=== PATIENT | male | born 1945 | race Caucasian/White ===

== ENCOUNTER 2019-11-07 16:25 | Inpatient (IN) | payer MEDICARE, OTHER ==
[~2019-11-07] VITALS: Ht 180.3 cm; Wt 92.5 kg
[~2019-11-07 16:25] MED LIST: ALLO100T PO; ASCO250T5 PO; ASPI81TA39 PO; CLOP75TA3 PO; DOCU250C14 PO; FOLI1TAB61 PO; INSLAN SQ; INSNOV SQ; LACT10SO9 PO; LEVO200 PO; NITR1PAT64 PO; SERT50TA12 PO; ZOLP5 PO
[2019-11-07] MEDS ORDERED: CARV3 PO (18:54)
[2019-11-07] MEDS ORDERED: ISOS30TA6 PO (18:54)
[2019-11-07] MEDS ORDERED: CINA30 PO (18:54)
[2019-11-07] MEDS ORDERED: HYDR25TA84 PO (18:54)
[2019-11-07] MEDS ORDERED: PROM6.2521 PO (18:54)
[2019-11-07] MEDS ORDERED: INSNPH SQ (18:54)
[2019-11-07] MEDS ORDERED: ATOR40TA28 PO (18:54)
[2019-11-07 19:11] LABS: GLUCOSE,POINT OF CARE 141 MG/DL (70-110)
[2019-11-07 19:25] LABS: BASOPHILS % (AUTO) 1.4 % (0.0-2.0); EOSINOPHILS % (AUTO) 8.9 % (1.0-6.0); HEMATOCRIT 37.9 % (41-53); HEMOGLOBIN 12.6 g/dL (13.5-17.5); LYMPHOCYTES # (AUTO) 1.5 K/uL (1.0-4.8); LYMPHOCYTES % (AUTO) 20.4 % (22.0-44.0); MEAN CORPUSCULAR HEMOGLOBIN 30.3 pg (26.0-34.0); MEAN CORPUSCULAR HGB CONC 33.2 G/dL (31.0-37.0); MEAN CORPUSCULAR VOLUME 91 fL (80-100); MONOCYTES # (AUTO) 0.4 K/uL (0.1-1.0); MONOCYTES % (AUTO) 5.7 % (2.0-9.0); NEUTROPHILS # (AUTO) 4.7 K/uL (1.8-7.7); NEUTROPHILS % (AUTO) 63.6 % (40.0-70.0); PLATELET COUNT (AUTO) 142 K/uL (150-450); RED BLOOD CELL COUNT(AUTO) 4.14 MIL/uL (4.50-5.90); RED CELL DISTRIBUTION WIDTH 17.6 % (11.5-14.5)
[2019-11-07 19:47] LABS: CALCIUM, TOTAL 8.3 mg/dL (8.8-10.5); CREATININE 4.61 mg/dL (0.60-1.30); POTASSIUM 4.9 mmol/L (3.5-5.1)
[2019-11-07 19:51] LABS: ALBUMIN 3.8 g/dL (3.4-5.0); BILIRUBIN,TOTAL 0.5 mg/dL (0.1-1.0); TOTAL PROTEIN, SERUM 8.2 g/dL (6.4-8.2)
[2019-11-07 21:43] LABS: MAGNESIUM 2.3 mg/dL (1.80-2.40); THYROID STIMULATING HORMONE 166.54 uIU/mL (0.36-3.74)
[2019-11-07 22:37] LABS: FREE T4 (FREE THYROXINE) 0.32 ng/dL (0.76-1.46)
[2019-11-07] MEDS ORDERED: ONDANSETRON HCL 4 MG/2 ML VIAL IVP PRN (23:15)
[2019-11-07] MEDS ORDERED: ACETAMINOPHEN 325 MG TABLET PO PRN ×2 (23:15→23:30)
[2019-11-07] MEDS ORDERED: 0.9% SODIUM CHLORIDE 10 ML SYRINGE IVP PRN (23:15)
[2019-11-07] MEDS ORDERED: OxyCODONE HCL/ACETAMINOPHEN 5-325 MG TABLET PO PRN (23:30)
[2019-11-07] MEDS ORDERED: LEVOTHYROXINE SODIUM 125 MCG TABLET PO ONE (23:30)
[2019-11-07] MEDS ORDERED: BISACODYL 10 MG RECTAL RECTAL SUPPOSITORY PR PRN (23:30)
[2019-11-07] MEDS ORDERED: DEXTROSE 50%-WATER 25 GM/50 ML SYRINGE IVP PRN (23:30)
[2019-11-08 08:40] VITALS: BP 110/75
[2019-11-08] MEDS: DOCUSATE SODIUM 100 MG CAPSULE PO SCH ×2 (09:59→20:43)
[2019-11-08] MEDS: CLOPIDOGREL BISULFATE 75 MG TABLET PO SCH (09:59)
[2019-11-08] MEDS: ASPIRIN 81 MG CHEWABLE TABLET PO SCH (09:59)
[2019-11-08] MEDS: FAMOTIDINE 20 MG TABLET PO SCH (09:59)
[2019-11-08] MEDS: HEPARIN SODIUM,PORCINE 5,000 UNITS/ML VIAL SQ SCH ×2 (10:00→20:42)
[2019-11-08 11:54] VITALS: BP 100/61
[2019-11-08 13:29] LABS: GLUCOMETER DEV NAME(LOC) 5N.2; GLUCOSE,POINT OF CARE 114 MG/DL (70-110)
[2019-11-08 16:20] VITALS: BP 119/54
[2019-11-08] MEDS: INSULIN LISPRO 100 UNITS/ML SQ PRN ×2 (18:29→20:40)
[2019-11-08 20:48] VITALS: BP 116/46
[2019-11-08 21:01] LABS: GLUCOMETER DEV NAME(LOC) 5N.2; GLUCOSE,POINT OF CARE 193 MG/DL (70-110)
[2019-11-08 21:01] LABS: GLUCOMETER DEV NAME(LOC) 5S.1; GLUCOSE,POINT OF CARE 148 MG/DL (70-110)
[2019-11-09 00:10] VITALS: BP 136/44
[2019-11-09 04:51] VITALS: BP 133/58
[2019-11-09] MEDS ORDERED: LEVOTHYROXINE SODIUM 125 MCG TABLET PO SCH (06:30)
[2019-11-09 07:48] LABS: GLUCOMETER DEV NAME(LOC) 5N.2; GLUCOSE,POINT OF CARE 112 MG/DL (70-110)
[2019-11-09 08:09] LABS: GLUCOMETER DEV NAME(LOC) 5N.2; GLUCOSE,POINT OF CARE 117 MG/DL (70-110)
[2019-11-09] MEDS: CLOPIDOGREL BISULFATE 75 MG TABLET PO SCH (08:39)
[2019-11-09] MEDS: ASPIRIN 81 MG CHEWABLE TABLET PO SCH (08:39)
[2019-11-09] MEDS: HEPARIN SODIUM,PORCINE 5,000 UNITS/ML VIAL SQ SCH (08:40)
[2019-11-09] MEDS: FAMOTIDINE 20 MG TABLET PO SCH (08:40)
[2019-11-09] MEDS: DOCUSATE SODIUM 100 MG CAPSULE PO SCH (08:40)
[2019-11-09 08:41] VITALS: BP 122/49
[2019-11-09 12:03] VITALS: BP 119/49
[2019-11-09 17:24] LABS: GLUCOMETER DEV NAME(LOC) 5S.2A; GLUCOSE,POINT OF CARE 127 MG/DL (70-110)
[2019-11-09 18:22] VITALS: BP 133/55
== END 2019-11-09 18:30 | disposition home or self-care (01) | DRG 643 ==
LOC: EMS 16:33 → 5N 11-08 06:30
PROVIDERS: ADMIT Internal Medicine; ATTEND Internal Medicine
PROC: 5A1D70Z Performance of Urinary Filtration, Intermittent, Less than 6 Hours Per Day (ICD-10-PCS; principal; 2019-11-09)
DX: E03.9 Hypothyroidism, unspecified (principal); N18.6 End stage renal disease; E43 Unspecified severe protein-calorie malnutrition; I12.0 Hypertensive chronic kidney disease with stage 5 chronic kidney disease or end stage renal disease; E46 Unspecified protein-calorie malnutrition; I25.10 Atherosclerotic heart disease of native coronary artery without angina pectoris; E78.00 Pure hypercholesterolemia, unspecified; E11.22 Type 2 diabetes mellitus with diabetic chronic kidney disease; M10.9 Gout, unspecified; D63.1 Anemia in chronic kidney disease; E78.5 Hyperlipidemia, unspecified; Z98.890 Other specified postprocedural states; Z79.4 Long term (current) use of insulin; Z99.2 Dependence on renal dialysis; Z68.28 Body mass index [BMI] 28.0-28.9, adult; Z79.899 Other long term (current) drug therapy
CPT/HCPCS: 83735; 84436; 84439; 84443; 84481; 93005; 93306; J1644

== ENCOUNTER 2019-12-06 12:14 | Inpatient (IN) | payer MEDICARE, MEDICAID ==
[~2019-12-06] VITALS: Ht 172.7 cm; Wt 93.0 kg
[~2019-12-06 12:14] MED LIST changes: -ALLO100T PO; -ASCO250T5 PO; +ATOR40TA28 PO; +CINA30 PO; -INSLAN SQ; +ISOS30TA6 PO; -LACT10SO9 PO; -LEVO200 PO; -ZOLP5 PO
[2019-12-06 12:49] LABS: GLUCOSE,POINT OF CARE 124 MG/DL (70-110)
[2019-12-06] MEDS ORDERED: LEVO25TA9 PO (12:51)
[2019-12-06 14:15] LABS: BASOPHILS % (AUTO) 0.9 % (0.0-2.0); EOSINOPHILS % (AUTO) 0.8 % (1.0-6.0); HEMATOCRIT 27.2 % (41-53); HEMOGLOBIN 9.3 g/dL (13.5-17.5); LYMPHOCYTES # (AUTO) 1.1 K/uL (1.0-4.8); LYMPHOCYTES % (AUTO) 12.1 % (22.0-44.0); MEAN CORPUSCULAR HEMOGLOBIN 32.3 pg (26.0-34.0); MEAN CORPUSCULAR HGB CONC 34.2 G/dL (31.0-37.0); MEAN CORPUSCULAR VOLUME 95 fL (80-100); MONOCYTES # (AUTO) 0.8 K/uL (0.1-1.0); MONOCYTES % (AUTO) 9.5 % (2.0-9.0); NEUTROPHILS # (AUTO) 6.7 K/uL (1.8-7.7); NEUTROPHILS % (AUTO) 76.7 % (40.0-70.0); PLATELET COUNT (AUTO) 169 K/uL (150-450); RED BLOOD CELL COUNT(AUTO) 2.87 MIL/uL (4.50-5.90); RED CELL DISTRIBUTION WIDTH 19.5 % (11.5-14.5)
[2019-12-06 14:29] LABS: CALCIUM, TOTAL 8.5 mg/dL (8.8-10.5); CREATININE 5.54 mg/dL (0.60-1.30); POTASSIUM 4.5 mmol/L (3.5-5.1)
[2019-12-06 14:43] LABS: INR 1.1 (0.9-1.1); PROTHROMBIN TIME 10.9 SEC (9.4-11.6)
[2019-12-06 14:54] LABS: ALBUMIN 3.4 g/dL (3.4-5.0); BILIRUBIN,TOTAL 0.5 mg/dL (0.1-1.0); TOTAL PROTEIN, SERUM 7.9 g/dL (6.4-8.2)
[2019-12-06] MEDS ORDERED: METOPROLOL SUCCINATE 25 MG ER TABLET PO ONE (15:30)
[2019-12-06] MEDS ORDERED: NITROGLYCERIN 2% (1 GM=INCH) PACKET TP ONE (15:30)
[2019-12-06] MEDS ORDERED: PANTOPRAZOLE SODIUM 40 MG/VIAL IVP ONE (16:00)
[2019-12-06] MEDS ORDERED: ACETAMINOPHEN 325 MG TABLET PO PRN (16:15)
[2019-12-06] MEDS ORDERED: 0.9% SODIUM CHLORIDE 10 ML SYRINGE IVP PRN ×2 (16:15→21:30)
[2019-12-06] MEDS: PANTOPRAZOLE SODIUM 80 MG in SODIUM CHLORIDE 0.9% 100 ML IV SCH (16:23)
[2019-12-06] MEDS ORDERED: HEPARIN SODIUM 25000 UNITS/D5W 250 ML IV PRN (18:45)
[2019-12-06] MEDS: NITROGLYCERIN 2% (1 GM=INCH) PACKET TP SCH ×2 (19:04→23:20)
[2019-12-06 19:31] LABS: THYROID STIMULATING HORMONE 9.22 uIU/mL (0.36-3.74)
[2019-12-06] MEDS: METOPROLOL TARTRATE 25 MG TABLET PO SCH (20:40)
[2019-12-06] MEDS ORDERED: ATORVASTATIN CALCIUM 40 MG TABLET PO SCH (21:00)
[2019-12-06] MEDS ORDERED: ONDANSETRON HCL 4 MG/2 ML VIAL IVP PRN (21:30)
[2019-12-06] MEDS ORDERED: DEXTROSE 50%-WATER 25 GM/50 ML SYRINGE IVP PRN (21:30)
[2019-12-06] MEDS ORDERED: IPRATROPIUM BROMIDE 0.5 MG/2.5 ML NEB SOLUTION NEB PRN (21:30)
[2019-12-06] MEDS ORDERED: ALBUTEROL SULFATE 2.5 MG/0.5 ML NEB SOLUTION NEB PRN (21:30)
[2019-12-07] MEDS: PANTOPRAZOLE SODIUM 80 MG in SODIUM CHLORIDE 0.9% 100 ML IV SCH (01:10)
[2019-12-07] MEDS: ALBUTEROL SULFATE 2.5 MG/0.5 ML NEB SOLUTION NEB SCH ×4 (01:41→20:01)
[2019-12-07] MEDS: IPRATROPIUM BROMIDE 0.5 MG/2.5 ML NEB SOLUTION NEB SCH ×4 (01:41→20:01)
[2019-12-07 01:54] LABS: GLUCOSE,POINT OF CARE 150 MG/DL (70-110)
[2019-12-07] MEDS ORDERED: PHENYLEPHRINE 200 MG/D5%-WATER 250 ML IV PRN ×2 (03:15→03:29)
[2019-12-07] MEDS: LEVOTHYROXINE SODIUM 25 MCG TABLET PO SCH (06:26)
[2019-12-07] MEDS ORDERED: LEVOTHYROXINE SODIUM 50 MCG TABLET PO SCH (06:30)
[2019-12-07 07:47] LABS: EOSINOPHILS % (AUTO) 2.4 % (1.0-6.0); HEMATOCRIT 26.3 % (41-53); LYMPHOCYTES # (AUTO) 1.4 K/uL (1.0-4.8); LYMPHOCYTES % (AUTO) 16.5 % (22.0-44.0); MEAN CORPUSCULAR HEMOGLOBIN 32.2 pg (26.0-34.0); MEAN CORPUSCULAR HGB CONC 34.2 G/dL (31.0-37.0); MEAN CORPUSCULAR VOLUME 94 fL (80-100); MONOCYTES # (AUTO) 0.9 K/uL (0.1-1.0); NEUTROPHILS % (AUTO) 70.1 % (40.0-70.0); PLATELET COUNT (AUTO) 187 K/uL (150-450); RED BLOOD CELL COUNT(AUTO) 2.79 MIL/uL (4.50-5.90); RED CELL DISTRIBUTION WIDTH 18.8 % (11.5-14.5)
[2019-12-07 08:19] LABS: ALBUMIN 3.2 g/dL (3.4-5.0); BILIRUBIN,TOTAL 0.6 mg/dL (0.1-1.0); CREATININE 6.9 mg/dL (0.60-1.30); MAGNESIUM 2.1 mg/dL (1.80-2.40); POTASSIUM 4.7 mmol/L (3.5-5.1); TOTAL PROTEIN, SERUM 7.6 g/dL (6.4-8.2)
[2019-12-07 08:23] LABS: CALCIUM, TOTAL 8.1 mg/dL (8.8-10.5)
[2019-12-07] MEDS ORDERED: ASPIRIN 81 MG EC TABLET PO SCH (09:00)
[2019-12-07] MEDS ORDERED: CLOPIDOGREL BISULFATE 75 MG TABLET PO SCH (09:00)
[2019-12-07] MEDS ORDERED: ATORVASTATIN CALCIUM 40 MG TABLET PO SCH (09:00)
[2019-12-07] MEDS: CINACALCET HCL 30 MG TABLET PO SCH (09:13)
[2019-12-07] MEDS: ISOSORBIDE MONONITRATE 30 MG ER TABLET PO SCH (09:13)
[2019-12-07] MEDS: NITROGLYCERIN 2% (1 GM=INCH) PACKET TP SCH ×3 (09:13→23:25)
[2019-12-07] MEDS: DOCUSATE SODIUM 250 MG CAPSULE PO SCH ×2 (09:13→21:03)
[2019-12-07] MEDS: ASPIRIN 81 MG CHEWABLE TABLET PO SCH (09:13)
[2019-12-07] MEDS: VITAMIN B COMP/VIT C/FOLIC ACID CAPSULE PO SCH (09:14)
[2019-12-07] MEDS: SERTRALINE HCL 50 MG TABLET PO SCH (09:14)
[2019-12-07] MEDS: METOPROLOL TARTRATE 25 MG TABLET PO SCH ×2 (09:14→19:40)
[2019-12-07 09:30] VITALS: BP 147/62
[2019-12-07] MEDS: PANTOPRAZOLE SODIUM 40 MG/VIAL IVP SCH (10:09)
[2019-12-07 12:00] VITALS: BP 99/41
[2019-12-07] MEDS ORDERED: MANNITOL 25%-12.5 GM/50 ML VIAL IVP ONE (12:00)
[2019-12-07] MEDS ORDERED: NITROGLYCERIN 2% (1 GM=INCH) PACKET TP SCH (12:00)
[2019-12-07 12:20] LABS: GLUCOSE,POINT OF CARE 103 MG/DL (70-110)
[2019-12-07] MEDS ORDERED: HEPARIN SODIUM 25000 UNITS/D5W 250 ML IV SCH (14:00)
[2019-12-07] MEDS ORDERED: FOLI1TAB61 PO (14:12)
[2019-12-07] MEDS ORDERED: NITR0.4T52 SL (14:12)
[2019-12-07] MEDS ORDERED: HEPARIN SODIUM 25000 UNITS/D5W 250 ML IV PRN (14:15)
[2019-12-07] MEDS ORDERED: HEPARIN SODIUM,PORCINE 5,000 UNITS/ML VIAL IVP PRN ×2 (14:15)
[2019-12-07 16:00] VITALS: BP 102/47
[2019-12-07 17:50] LABS: GLUCOSE,POINT OF CARE 125 MG/DL (70-110)
[2019-12-07 20:00] VITALS: BP 108/41
[2019-12-07] MEDS: INSULIN LISPRO 100 UNITS/ML SQ PRN (21:04)
[2019-12-08] VITALS: BP 160/80
[2019-12-08] MEDS: IPRATROPIUM BROMIDE 0.5 MG/2.5 ML NEB SOLUTION NEB SCH ×4 (02:37→22:26)
[2019-12-08] MEDS: ALBUTEROL SULFATE 2.5 MG/0.5 ML NEB SOLUTION NEB SCH ×4 (02:37→22:27)
[2019-12-08 04:00] VITALS: BP 97/54
[2019-12-08] MEDS: INSULIN LISPRO 100 UNITS/ML SQ PRN ×3 (05:11→22:09)
[2019-12-08 05:28] LABS: BASOPHILS % (AUTO) 0.9 % (0.0-2.0); HEMATOCRIT 23.7 % (41-53); HEMOGLOBIN 8.1 g/dL (13.5-17.5); LYMPHOCYTES # (AUTO) 0.9 K/uL (1.0-4.8); LYMPHOCYTES % (AUTO) 14.7 % (22.0-44.0); MEAN CORPUSCULAR HEMOGLOBIN 31.9 pg (26.0-34.0); MEAN CORPUSCULAR HGB CONC 34.3 G/dL (31.0-37.0); MEAN CORPUSCULAR VOLUME 93 fL (80-100); MONOCYTES # (AUTO) 0.7 K/uL (0.1-1.0); MONOCYTES % (AUTO) 11.2 % (2.0-9.0); NEUTROPHILS # (AUTO) 4.1 K/uL (1.8-7.7); NEUTROPHILS % (AUTO) 69.2 % (40.0-70.0); PLATELET COUNT (AUTO) 153 K/uL (150-450); RED BLOOD CELL COUNT(AUTO) 2.55 MIL/uL (4.50-5.90); RED CELL DISTRIBUTION WIDTH 18.5 % (11.5-14.5)
[2019-12-08 05:31] LABS: GLUCOSE,POINT OF CARE 129 MG/DL (70-110)
[2019-12-08 05:49] LABS: ALBUMIN 2.9 g/dL (3.4-5.0); BILIRUBIN,TOTAL 0.5 mg/dL (0.1-1.0); CALCIUM, TOTAL 7.8 mg/dL (8.8-10.5); CREATININE 4.2 mg/dL (0.60-1.30); MAGNESIUM 1.8 mg/dL (1.80-2.40); POTASSIUM 3.9 mmol/L (3.5-5.1); TOTAL PROTEIN, SERUM 7.2 g/dL (6.4-8.2)
[2019-12-08] MEDS: LEVOTHYROXINE SODIUM 25 MCG TABLET PO SCH (06:15)
[2019-12-08 07:40] LABS: GLUCOSE,POINT OF CARE 159 MG/DL (70-110)
[2019-12-08] MEDS: VITAMIN B COMP/VIT C/FOLIC ACID CAPSULE PO SCH (08:47)
[2019-12-08] MEDS: NITROGLYCERIN 2% (1 GM=INCH) PACKET TP SCH ×3 (08:47→23:35)
[2019-12-08] MEDS: DOCUSATE SODIUM 250 MG CAPSULE PO SCH ×2 (08:47→21:28)
[2019-12-08] MEDS: CINACALCET HCL 30 MG TABLET PO SCH (08:47)
[2019-12-08] MEDS: ISOSORBIDE MONONITRATE 30 MG ER TABLET PO SCH (08:48)
[2019-12-08] MEDS: PANTOPRAZOLE SODIUM 40 MG/VIAL IVP SCH (08:48)
[2019-12-08] MEDS: METOPROLOL TARTRATE 25 MG TABLET PO SCH ×2 (08:48→21:27)
[2019-12-08] MEDS: ASPIRIN 81 MG CHEWABLE TABLET PO SCH (08:48)
[2019-12-08] MEDS: SERTRALINE HCL 50 MG TABLET PO SCH (08:48)
[2019-12-08 12:00] VITALS: BP 97/43
[2019-12-08 16:00] VITALS: BP 119/56
[2019-12-08 19:20] VITALS: BP 139/61
[2019-12-08] MEDS: ATORVASTATIN CALCIUM 40 MG TABLET PO SCH (21:27)
[2019-12-08 23:33] VITALS: BP 126/64
[2019-12-09] MEDS: IPRATROPIUM BROMIDE 0.5 MG/2.5 ML NEB SOLUTION NEB SCH ×4 (03:39→20:33)
[2019-12-09] MEDS: ALBUTEROL SULFATE 2.5 MG/0.5 ML NEB SOLUTION NEB SCH ×4 (03:40→20:33)
[2019-12-09 04:01] VITALS: BP 101/51
[2019-12-09 05:25] LABS: GLUCOMETER DEV NAME(LOC) 5N.1; GLUCOSE,POINT OF CARE 159 MG/DL (70-110)
[2019-12-09] MEDS: LEVOTHYROXINE SODIUM 25 MCG TABLET PO SCH (06:30)
[2019-12-09] MEDS: INSULIN LISPRO 100 UNITS/ML SQ PRN ×3 (06:55→21:52)
[2019-12-09] MEDS: NITROGLYCERIN 2% (1 GM=INCH) PACKET TP SCH ×3 (08:00→23:33)
[2019-12-09 09:00] VITALS: BP 110/50
[2019-12-09 09:21] LABS: EOSINOPHILS % (AUTO) 3.2 % (1.0-6.0); HEMATOCRIT 23.8 % (41-53); HEMOGLOBIN 8.1 g/dL (13.5-17.5); LYMPHOCYTES # (AUTO) 1.2 K/uL (1.0-4.8); LYMPHOCYTES % (AUTO) 20.6 % (22.0-44.0); MEAN CORPUSCULAR HEMOGLOBIN 31.8 pg (26.0-34.0); MEAN CORPUSCULAR HGB CONC 34.1 G/dL (31.0-37.0); MEAN CORPUSCULAR VOLUME 93 fL (80-100); MONOCYTES # (AUTO) 0.7 K/uL (0.1-1.0); NEUTROPHILS # (AUTO) 3.6 K/uL (1.8-7.7); NEUTROPHILS % (AUTO) 63.2 % (40.0-70.0); PLATELET COUNT (AUTO) 158 K/uL (150-450); RED BLOOD CELL COUNT(AUTO) 2.55 MIL/uL (4.50-5.90); RED CELL DISTRIBUTION WIDTH 18.8 % (11.5-14.5)
[2019-12-09] MEDS: VITAMIN B COMP/VIT C/FOLIC ACID CAPSULE PO SCH (09:35)
[2019-12-09] MEDS: CINACALCET HCL 30 MG TABLET PO SCH (09:35)
[2019-12-09] MEDS: METOPROLOL TARTRATE 25 MG TABLET PO SCH ×2 (09:36→21:35)
[2019-12-09] MEDS: DOCUSATE SODIUM 250 MG CAPSULE PO SCH ×2 (09:36→21:00)
[2019-12-09] MEDS: ISOSORBIDE MONONITRATE 30 MG ER TABLET PO SCH (09:36)
[2019-12-09] MEDS: ASPIRIN 81 MG CHEWABLE TABLET PO SCH (09:36)
[2019-12-09 09:40] LABS: BILIRUBIN,TOTAL 0.6 mg/dL (0.1-1.0); CALCIUM, TOTAL 7.2 mg/dL (8.8-10.5); CREATININE 6.21 mg/dL (0.60-1.30); MAGNESIUM 1.8 mg/dL (1.80-2.40); POTASSIUM 4.1 mmol/L (3.5-5.1); TOTAL PROTEIN, SERUM 7.2 g/dL (6.4-8.2)
[2019-12-09] MEDS: SERTRALINE HCL 50 MG TABLET PO SCH (10:37)
[2019-12-09] MEDS: PANTOPRAZOLE SODIUM 40 MG/VIAL IVP SCH (10:37)
[2019-12-09 11:54] VITALS: BP 110/40
[2019-12-09 12:22] LABS: GLUCOMETER DEV NAME(LOC) 5S.1; GLUCOSE,POINT OF CARE 119 MG/DL (70-110)
[2019-12-09 13:39] LABS: GLUCOMETER DEV NAME(LOC) 5N.1; GLUCOSE,POINT OF CARE 176 MG/DL (70-110)
[2019-12-09 15:29] VITALS: BP 103/52
[2019-12-09 19:27] VITALS: BP 149/57
[2019-12-09] MEDS: ATORVASTATIN CALCIUM 40 MG TABLET PO SCH (21:36)
[2019-12-09 23:50] VITALS: BP 112/55
[2019-12-10] MEDS: IPRATROPIUM BROMIDE 0.5 MG/2.5 ML NEB SOLUTION NEB SCH ×4 (03:01→19:47)
[2019-12-10] MEDS: ALBUTEROL SULFATE 2.5 MG/0.5 ML NEB SOLUTION NEB SCH ×4 (03:01→19:47)
[2019-12-10 05:03] VITALS: BP 112/53
[2019-12-10] MEDS: LEVOTHYROXINE SODIUM 25 MCG TABLET PO SCH (06:30)
[2019-12-10] MEDS: INSULIN LISPRO 100 UNITS/ML SQ PRN (06:55)
[2019-12-10 07:04] LABS: BASOPHILS % (AUTO) 0.9 % (0.0-2.0); EOSINOPHILS % (AUTO) 5.4 % (1.0-6.0); HEMATOCRIT 22.1 % (41-53); HEMOGLOBIN 7.7 g/dL (13.5-17.5); LYMPHOCYTES # (AUTO) 1.3 K/uL (1.0-4.8); LYMPHOCYTES % (AUTO) 22.8 % (22.0-44.0); MEAN CORPUSCULAR HEMOGLOBIN 32.4 pg (26.0-34.0); MEAN CORPUSCULAR HGB CONC 35.1 G/dL (31.0-37.0); MEAN CORPUSCULAR VOLUME 93 fL (80-100); MONOCYTES # (AUTO) 0.7 K/uL (0.1-1.0); MONOCYTES % (AUTO) 11.2 % (2.0-9.0); NEUTROPHILS # (AUTO) 3.5 K/uL (1.8-7.7); NEUTROPHILS % (AUTO) 59.7 % (40.0-70.0); PLATELET COUNT (AUTO) 150 K/uL (150-450); RED BLOOD CELL COUNT(AUTO) 2.39 MIL/uL (4.50-5.90); RED CELL DISTRIBUTION WIDTH 18.9 % (11.5-14.5)
[2019-12-10 07:46] LABS: GLUCOMETER DEV NAME(LOC) 5S.1; GLUCOSE,POINT OF CARE 123 MG/DL (70-110)
[2019-12-10 07:46] LABS: GLUCOMETER DEV NAME(LOC) 5S.1; GLUCOSE,POINT OF CARE 128 MG/DL (70-110)
[2019-12-10 07:46] LABS: GLUCOMETER DEV NAME(LOC) 5S.1; GLUCOSE,POINT OF CARE 119 MG/DL (70-110)
[2019-12-10 07:52] LABS: ALBUMIN 2.9 g/dL (3.4-5.0); BILIRUBIN,TOTAL 0.6 mg/dL (0.1-1.0); CALCIUM, TOTAL 7.2 mg/dL (8.8-10.5); CREATININE 7.66 mg/dL (0.60-1.30); MAGNESIUM 1.9 mg/dL (1.80-2.40); POTASSIUM 4.6 mmol/L (3.5-5.1); TOTAL PROTEIN, SERUM 7.3 g/dL (6.4-8.2)
[2019-12-10] MEDS: CINACALCET HCL 30 MG TABLET PO SCH (08:00)
[2019-12-10 08:10] VITALS: BP 139/56
[2019-12-10] MEDS: ASPIRIN 81 MG CHEWABLE TABLET PO SCH (09:00)
[2019-12-10] MEDS: VITAMIN B COMP/VIT C/FOLIC ACID CAPSULE PO SCH (09:00)
[2019-12-10] MEDS: SERTRALINE HCL 50 MG TABLET PO SCH (09:00)
[2019-12-10] MEDS: METOPROLOL TARTRATE 25 MG TABLET PO SCH ×2 (09:00→20:45)
[2019-12-10] MEDS: ISOSORBIDE MONONITRATE 30 MG ER TABLET PO SCH (09:00)
[2019-12-10] MEDS: DOCUSATE SODIUM 250 MG CAPSULE PO SCH ×2 (09:00→20:45)
[2019-12-10] MEDS: NITROGLYCERIN 2% (1 GM=INCH) PACKET TP SCH ×3 (09:32→23:47)
[2019-12-10] MEDS: PANTOPRAZOLE SODIUM 40 MG/VIAL IVP SCH (09:48)
[2019-12-10 11:24] VITALS: BP 104/77
[2019-12-10 12:50] LABS: GLUCOMETER DEV NAME(LOC) 5N.1; GLUCOSE,POINT OF CARE 122 MG/DL (70-110)
[2019-12-10] MEDS: DOXYCYCLINE HYCLATE 100 MG CAPSULE PO SCH ×2 (14:30→20:45)
[2019-12-10] MEDS: CefTRIAXone 1 GM/DEXTROSE 50 ML IV SCH (16:00)
[2019-12-10 18:27] LABS: GLUCOMETER DEV NAME(LOC) 5N.1; GLUCOSE,POINT OF CARE 138 MG/DL (70-110)
[2019-12-10 20:19] VITALS: BP 119/46
[2019-12-10] MEDS: ATORVASTATIN CALCIUM 40 MG TABLET PO SCH (20:45)
[2019-12-10 23:48] VITALS: BP 130/47
[2019-12-11] VITALS (10 sets, daily range): BP systolic 107–160; BP diastolic 45–73
[2019-12-11] MEDS: IPRATROPIUM BROMIDE 0.5 MG/2.5 ML NEB SOLUTION NEB SCH ×4 (02:19→20:17)
[2019-12-11] MEDS: ALBUTEROL SULFATE 2.5 MG/0.5 ML NEB SOLUTION NEB SCH ×4 (02:19→20:17)
[2019-12-11] MEDS: LEVOTHYROXINE SODIUM 25 MCG TABLET PO SCH (06:30)
[2019-12-11 06:41] LABS: BASOPHILS % (AUTO) 0.7 % (0.0-2.0); EOSINOPHILS % (AUTO) 4.1 % (1.0-6.0); HEMATOCRIT 22.3 % (41-53); HEMOGLOBIN 7.9 g/dL (13.5-17.5); LYMPHOCYTES # (AUTO) 1.3 K/uL (1.0-4.8); LYMPHOCYTES % (AUTO) 19.4 % (22.0-44.0); MEAN CORPUSCULAR HEMOGLOBIN 32.8 pg (26.0-34.0); MEAN CORPUSCULAR HGB CONC 35.5 G/dL (31.0-37.0); MEAN CORPUSCULAR VOLUME 92 fL (80-100); MONOCYTES # (AUTO) 0.5 K/uL (0.1-1.0); MONOCYTES % (AUTO) 8.2 % (2.0-9.0); NEUTROPHILS # (AUTO) 4.4 K/uL (1.8-7.7); NEUTROPHILS % (AUTO) 67.6 % (40.0-70.0); PLATELET COUNT (AUTO) 164 K/uL (150-450); RED BLOOD CELL COUNT(AUTO) 2.42 MIL/uL (4.50-5.90); RED CELL DISTRIBUTION WIDTH 18.4 % (11.5-14.5)
[2019-12-11 07:14] LABS: ALBUMIN 2.9 g/dL (3.4-5.0); BILIRUBIN,TOTAL 0.6 mg/dL (0.1-1.0); CALCIUM, TOTAL 8.1 mg/dL (8.8-10.5); CREATININE 4.75 mg/dL (0.60-1.30); MAGNESIUM 1.7 mg/dL (1.80-2.40); POTASSIUM 3.7 mmol/L (3.5-5.1); TOTAL PROTEIN, SERUM 7.2 g/dL (6.4-8.2)
[2019-12-11] MEDS: NITROGLYCERIN 2% (1 GM=INCH) PACKET TP SCH (08:00)
[2019-12-11] MEDS: CINACALCET HCL 30 MG TABLET PO SCH (08:00)
[2019-12-11] MEDS ORDERED: SODIUM BICARBONATE 50 MEQ/50 ML VIAL ONE (08:17)
[2019-12-11] MEDS ORDERED: HEPARIN SODIUM 1000 UNITS/NS 1,000 ML ONE (08:17)
[2019-12-11] MEDS ORDERED: LIDOCAINE/PF 1% 30 ML VIAL ONE (08:17)
[2019-12-11] MEDS ORDERED: IOHEXOL 300 MG/ML 150 ML VIAL ONE (08:17)
[2019-12-11] MEDS ORDERED: IOHEXOL 300 MG/ML 100 ML VIAL ONE ×3 (08:30→09:51)
[2019-12-11 08:39] LABS: GLUCOMETER DEV NAME(LOC) 5N.1; GLUCOSE,POINT OF CARE 127 MG/DL (70-110)
[2019-12-11 08:39] LABS: GLUCOMETER DEV NAME(LOC) 5S.1; GLUCOSE,POINT OF CARE 155 MG/DL (70-110)
[2019-12-11] MEDS: PANTOPRAZOLE SODIUM 40 MG/VIAL IVP SCH (08:39)
[2019-12-11] MEDS: ASPIRIN 81 MG CHEWABLE TABLET PO SCH (08:43)
[2019-12-11] MEDS: ISOSORBIDE MONONITRATE 30 MG ER TABLET PO SCH (08:44)
[2019-12-11] MEDS: DOCUSATE SODIUM 250 MG CAPSULE PO SCH ×2 (08:44→21:22)
[2019-12-11] MEDS: DOXYCYCLINE HYCLATE 100 MG CAPSULE PO SCH ×2 (08:45→22:05)
[2019-12-11] MEDS: METOPROLOL TARTRATE 25 MG TABLET PO SCH (08:45)
[2019-12-11] MEDS: VITAMIN B COMP/VIT C/FOLIC ACID CAPSULE PO SCH (08:45)
[2019-12-11] MEDS: SERTRALINE HCL 50 MG TABLET PO SCH (08:46)
[2019-12-11] MEDS ORDERED: IOHEXOL 300 MG/ML 50 ML VIAL ONE ×2 (08:51→09:16)
[2019-12-11] MEDS: EPOETIN ALFA 10,000 UNITS/ML VIAL SQ SCH (09:00)
[2019-12-11] MEDS ORDERED: HEPARIN SODIUM,PORCINE 1,000 UNITS/ML 10 ML VIAL ONE (10:07)
[2019-12-11] MEDS ORDERED: VERAPAMIL HCL 2.5 MG/ML 2 ML VIAL ONE (10:07)
[2019-12-11] MEDS ORDERED: NITROGLYCERIN 50 MG/D5% WATER 0 ML ONE (10:07)
[2019-12-11] MEDS ORDERED: CLOPIDOGREL BISULFATE 300 MG TABLET ONE (10:17)
[2019-12-11] MEDS ORDERED: ASPIRIN 325 MG TABLET ONE (10:25)
[2019-12-11] MEDS ORDERED: HEPARIN SODIUM 1000 UNITS/NS 500 ML ONE (10:25)
[2019-12-11] MEDS ORDERED: PHENYLEPHRINE 200 MG/D5%-WATER 250 ML IV PRN (10:38)
[2019-12-11] MEDS ORDERED: SODIUM CHLORIDE 0.9% 500 ML IV ONE (12:04)
[2019-12-11] MEDS ORDERED: HEPARIN SODIUM 2,000 UNITS in HEPARIN SODIUM 1000 UNITS/NS 1,000 ML IARTER ONE (12:04)
[2019-12-11] MEDS ORDERED: IOHEXOL 300 MG/ML 100 ML VIAL IARTER ONE ×2 (12:15)
[2019-12-11] MEDS ORDERED: HEPARIN SODIUM,PORCINE 5,000 UNITS/ML VIAL IVP ONE ×2 (12:15)
[2019-12-11] MEDS ORDERED: LIDOCAINE 1% 30 ML/SOD BICARB 8.4% 4 ML SQ ONE (12:15)
[2019-12-11] MEDS ORDERED: IOHEXOL 300 MG/ML 150 ML VIAL IARTER ONE (12:15)
[2019-12-11] MEDS ORDERED: CLOPIDOGREL BISULFATE 300 MG TABLET PO ONE (12:15)
[2019-12-11] MEDS ORDERED: ASPIRIN 325 MG TABLET PO ONE (12:15)
[2019-12-11] MEDS ORDERED: IOHEXOL 300 MG/ML 50 ML VIAL IARTER ONE ×2 (12:15)
[2019-12-11 13:20] LABS: INR 1.1 (0.9-1.1); PROTHROMBIN TIME 11.3 SEC (9.4-11.6)
[2019-12-11] MEDS: CefTRIAXone 1 GM/DEXTROSE 50 ML IV SCH (16:00)
[2019-12-11] MEDS ORDERED: SODIUM CHLORIDE 0.9% 2,000 ML ONE (16:52)
[2019-12-11] MEDS: ATORVASTATIN CALCIUM 40 MG TABLET PO SCH (21:22)
[2019-12-12] VITALS (8 sets, daily range): BP systolic 112–153; BP diastolic 46–75
[2019-12-12] MEDS: ALBUTEROL SULFATE 2.5 MG/0.5 ML NEB SOLUTION NEB SCH ×4 (01:50→20:03)
[2019-12-12] MEDS: IPRATROPIUM BROMIDE 0.5 MG/2.5 ML NEB SOLUTION NEB SCH ×4 (01:50→20:03)
[2019-12-12 05:19] LABS: BASOPHILS % (AUTO) 0.9 % (0.0-2.0); EOSINOPHILS % (AUTO) 4.5 % (1.0-6.0); HEMATOCRIT 22.5 % (41-53); HEMOGLOBIN 7.9 g/dL (13.5-17.5); LYMPHOCYTES % (AUTO) 16.5 % (22.0-44.0); MEAN CORPUSCULAR HEMOGLOBIN 32.6 pg (26.0-34.0); MEAN CORPUSCULAR HGB CONC 35.1 G/dL (31.0-37.0); MEAN CORPUSCULAR VOLUME 93 fL (80-100); MONOCYTES # (AUTO) 0.6 K/uL (0.1-1.0); MONOCYTES % (AUTO) 9.7 % (2.0-9.0); NEUTROPHILS % (AUTO) 68.4 % (40.0-70.0); PLATELET COUNT (AUTO) 183 K/uL (150-450); RED BLOOD CELL COUNT(AUTO) 2.43 MIL/uL (4.50-5.90); RED CELL DISTRIBUTION WIDTH 18.7 % (11.5-14.5)
[2019-12-12 05:36] LABS: CALCIUM, TOTAL 8.6 mg/dL (8.8-10.5); CREATININE 3.55 mg/dL (0.60-1.30); POTASSIUM 4.1 mmol/L (3.5-5.1)
[2019-12-12 05:50] LABS: GLUCOSE,POINT OF CARE 102 MG/DL (70-110)
[2019-12-12] MEDS: LEVOTHYROXINE SODIUM 25 MCG TABLET PO SCH (05:57)
[2019-12-12 06:11] LABS: GLUCOSE,POINT OF CARE 132 MG/DL (70-110)
[2019-12-12 06:15] LABS: GLUCOSE,POINT OF CARE 227 MG/DL (70-110)
[2019-12-12 06:16] LABS: GLUCOSE,POINT OF CARE 134 MG/DL (70-110)
[2019-12-12] MEDS ORDERED: ASPIRIN 81 MG CHEWABLE TABLET PO SCH (09:00)
[2019-12-12] MEDS: DOXYCYCLINE HYCLATE 100 MG CAPSULE PO SCH ×2 (09:18→21:36)
[2019-12-12] MEDS: SERTRALINE HCL 50 MG TABLET PO SCH (09:19)
[2019-12-12] MEDS: VITAMIN B COMP/VIT C/FOLIC ACID CAPSULE PO SCH (09:19)
[2019-12-12] MEDS: CINACALCET HCL 30 MG TABLET PO SCH (09:19)
[2019-12-12] MEDS: CLOPIDOGREL BISULFATE 75 MG TABLET PO SCH (09:19)
[2019-12-12] MEDS: DOCUSATE SODIUM 250 MG CAPSULE PO SCH ×2 (09:19→21:35)
[2019-12-12] MEDS: PANTOPRAZOLE SODIUM 40 MG/VIAL IVP SCH (09:20)
[2019-12-12] MEDS: ASPIRIN 81 MG CHEWABLE TABLET PO SCH (09:22)
[2019-12-12] MEDS: INSULIN LISPRO 100 UNITS/ML SQ PRN ×3 (11:39→21:39)
[2019-12-12] MEDS: CefTRIAXone 1 GM/DEXTROSE 50 ML IV SCH (16:20)
[2019-12-12] MEDS: ATORVASTATIN CALCIUM 40 MG TABLET PO SCH (21:35)
[2019-12-13 00:49] LABS: GLUCOSE,POINT OF CARE 180 MG/DL (70-110)
[2019-12-13 00:51] LABS: GLUCOSE,POINT OF CARE 192 MG/DL (70-110)
[2019-12-13] MEDS: IPRATROPIUM BROMIDE 0.5 MG/2.5 ML NEB SOLUTION NEB SCH ×2 (02:33→20:00)
[2019-12-13] MEDS: ALBUTEROL SULFATE 2.5 MG/0.5 ML NEB SOLUTION NEB SCH ×2 (02:33→20:00)
[2019-12-13 03:30] VITALS: BP 143/72
[2019-12-13] MEDS: LEVOTHYROXINE SODIUM 25 MCG TABLET PO SCH (05:55)
[2019-12-13 06:22] LABS: GLUCOMETER DEV NAME(LOC) 5N.2; GLUCOSE,POINT OF CARE 135 MG/DL (70-110)
[2019-12-13 06:22] LABS: GLUCOMETER DEV NAME(LOC) 5S.2A; GLUCOSE,POINT OF CARE 144 MG/DL (70-110)
[2019-12-13 06:57] LABS: EOSINOPHILS % (AUTO) 6.8 % (1.0-6.0); HEMATOCRIT 21.1 % (41-53); HEMOGLOBIN 7.3 g/dL (13.5-17.5); LYMPHOCYTES % (AUTO) 16.3 % (22.0-44.0); MEAN CORPUSCULAR HEMOGLOBIN 32.1 pg (26.0-34.0); MEAN CORPUSCULAR HGB CONC 34.4 G/dL (31.0-37.0); MEAN CORPUSCULAR VOLUME 93 fL (80-100); MONOCYTES # (AUTO) 0.6 K/uL (0.1-1.0); MONOCYTES % (AUTO) 9.5 % (2.0-9.0); NEUTROPHILS # (AUTO) 3.9 K/uL (1.8-7.7); NEUTROPHILS % (AUTO) 66.4 % (40.0-70.0); PLATELET COUNT (AUTO) 209 K/uL (150-450); RED BLOOD CELL COUNT(AUTO) 2.26 MIL/uL (4.50-5.90); RED CELL DISTRIBUTION WIDTH 18.8 % (11.5-14.5)
[2019-12-13 07:07] VITALS: BP 146/65
[2019-12-13 07:20] LABS: ALBUMIN 2.9 g/dL (3.4-5.0); BILIRUBIN,TOTAL 0.5 mg/dL (0.1-1.0); CALCIUM, TOTAL 8.3 mg/dL (8.8-10.5); CREATININE 5.36 mg/dL (0.60-1.30); MAGNESIUM 1.7 mg/dL (1.80-2.40); POTASSIUM 4.8 mmol/L (3.5-5.1); TOTAL PROTEIN, SERUM 7.3 g/dL (6.4-8.2)
[2019-12-13] MEDS: CLOPIDOGREL BISULFATE 75 MG TABLET PO SCH (09:00)
[2019-12-13] MEDS: PANTOPRAZOLE SODIUM 40 MG/VIAL IVP SCH (09:00)
[2019-12-13] MEDS: CINACALCET HCL 30 MG TABLET PO SCH (09:00)
[2019-12-13] MEDS: DOCUSATE SODIUM 250 MG CAPSULE PO SCH ×2 (09:01→20:45)
[2019-12-13] MEDS: VITAMIN B COMP/VIT C/FOLIC ACID CAPSULE PO SCH (09:01)
[2019-12-13] MEDS: ASPIRIN 81 MG CHEWABLE TABLET PO SCH (09:01)
[2019-12-13] MEDS: DOXYCYCLINE HYCLATE 100 MG CAPSULE PO SCH ×2 (09:01→20:45)
[2019-12-13] MEDS: SERTRALINE HCL 50 MG TABLET PO SCH (09:01)
[2019-12-13] MEDS: EPOETIN ALFA 10,000 UNITS/ML VIAL SQ SCH (09:03)
[2019-12-13 10:42] VITALS: BP 141/66
[2019-12-13] MEDS: INSULIN LISPRO 100 UNITS/ML SQ PRN ×3 (12:05→20:52)
[2019-12-13 16:23] VITALS: BP 144/72
[2019-12-13] MEDS: CefTRIAXone 1 GM/DEXTROSE 50 ML IV SCH (16:37)
[2019-12-13] MEDS ORDERED: ACETAMINOPHEN 325 MG TABLET PO PRN (17:30)
[2019-12-13] MEDS ORDERED: OxyCODONE HCL/ACETAMINOPHEN 5-325 MG TABLET PO PRN (17:30)
[2019-12-13] MEDS ORDERED: SODIUM CHLORIDE 0.9% 100 ML ONE (18:02)
[2019-12-13 18:23] LABS: GLUCOMETER DEV NAME(LOC) 5S.2A; GLUCOSE,POINT OF CARE 147 MG/DL (70-110)
[2019-12-13 20:13] VITALS: BP 92/45
[2019-12-13] MEDS: ATORVASTATIN CALCIUM 40 MG TABLET PO SCH (20:45)
[2019-12-14] VITALS: BP 113/49
[2019-12-14 00:56] LABS: GLUCOMETER DEV NAME(LOC) 5N.2; GLUCOSE,POINT OF CARE 161 MG/DL (70-110)
[2019-12-14 00:56] LABS: GLUCOMETER DEV NAME(LOC) 5N.2; GLUCOSE,POINT OF CARE 146 MG/DL (70-110)
[2019-12-14] MEDS: ALBUTEROL SULFATE 2.5 MG/0.5 ML NEB SOLUTION NEB SCH ×3 (02:00→14:05)
[2019-12-14] MEDS: IPRATROPIUM BROMIDE 0.5 MG/2.5 ML NEB SOLUTION NEB SCH ×3 (02:00→14:05)
[2019-12-14 04:03] VITALS: BP 116/53
[2019-12-14 05:30] LABS: GLUCOMETER DEV NAME(LOC) 5S.2A; GLUCOSE,POINT OF CARE 139 MG/DL (70-110)
[2019-12-14] MEDS: LEVOTHYROXINE SODIUM 25 MCG TABLET PO SCH (05:31)
[2019-12-14 06:50] LABS: HEMATOCRIT 21.1 % (41-53); HEMOGLOBIN 7.2 g/dL (13.5-17.5); MEAN CORPUSCULAR HEMOGLOBIN 31.8 pg (26.0-34.0); MEAN CORPUSCULAR HGB CONC 34.1 G/dL (31.0-37.0); MEAN CORPUSCULAR VOLUME 93 fL (80-100); PLATELET COUNT (AUTO) 212 K/uL (150-450); RED BLOOD CELL COUNT(AUTO) 2.26 MIL/uL (4.50-5.90); RED CELL DISTRIBUTION WIDTH 18.8 % (11.5-14.5)
[2019-12-14 06:55] LABS: CALCIUM, TOTAL 8.3 mg/dL (8.8-10.5); CREATININE 4.14 mg/dL (0.60-1.30); POTASSIUM 4.2 mmol/L (3.5-5.1)
[2019-12-14 07:14] VITALS: BP 137/62
[2019-12-14 07:37] LABS: MAGNESIUM 1.5 mg/dL (1.80-2.40)
[2019-12-14 07:44] LABS: BAND NEUTROPHILS % (MANUAL) 4 % (0-5); EOSINOPHILS % (MANUAL) 3 % (1-6); LYMPHOCYTES % (MANUAL) 30 % (22-44); MONOCYTES % (MANUAL) 4 % (2-9); SEGMENTED NEUTROPHILS % 59 % (40-70)
[2019-12-14] MEDS: VITAMIN B COMP/VIT C/FOLIC ACID CAPSULE PO SCH (08:51)
[2019-12-14] MEDS: CINACALCET HCL 30 MG TABLET PO SCH (08:51)
[2019-12-14] MEDS: DOCUSATE SODIUM 250 MG CAPSULE PO SCH (08:51)
[2019-12-14] MEDS: SERTRALINE HCL 50 MG TABLET PO SCH (08:51)
[2019-12-14] MEDS: DOXYCYCLINE HYCLATE 100 MG CAPSULE PO SCH (08:52)
[2019-12-14] MEDS: PANTOPRAZOLE SODIUM 40 MG/VIAL IVP SCH (08:52)
[2019-12-14] MEDS: CLOPIDOGREL BISULFATE 75 MG TABLET PO SCH (08:52)
[2019-12-14] MEDS: ASPIRIN 81 MG CHEWABLE TABLET PO SCH (08:52)
[2019-12-14] MEDS ORDERED: MAGNESIUM OXIDE 400 MG TABLET PO ONE (09:15)
[2019-12-14] MEDS ORDERED: AUD NEB (11:55)
[2019-12-14] MEDS ORDERED: DOXY100C PO (11:56)
[2019-12-14] MEDS ORDERED: CEFX1I IM (11:57)
[2019-12-14 11:58] LABS: GLUCOMETER DEV NAME(LOC) 5N.2; GLUCOSE,POINT OF CARE 166 MG/DL (70-110)
[2019-12-14 12:04] VITALS: BP 136/64
[2019-12-14] MEDS: INSULIN LISPRO 100 UNITS/ML SQ PRN (12:39)
[2019-12-14] MEDS ORDERED: EPOE10I SQ (12:41)
[2019-12-14] MEDS ORDERED: PANT40VI14 PO (12:42)
[2019-12-14] MEDS ORDERED: ACET650S14 PR (12:43)
[2019-12-14] MEDS ORDERED: ONDA4VIA22 IV (12:46)
== END 2019-12-14 14:30 | DRG 246 ==
LOC: EMS 12:16 → ICU 12-07 08:21 → 5N 12-08 19:10 → ICU 12-11 12:55 → 5S 12-12 17:30
PROVIDERS: ADMIT Internal Medicine; ATTEND Internal Medicine
PROC: 5A1D70Z Performance of Urinary Filtration, Intermittent, Less than 6 Hours Per Day (ICD-10-PCS; 2019-12-07)
PROC: 5A1D70Z Performance of Urinary Filtration, Intermittent, Less than 6 Hours Per Day (ICD-10-PCS; 2019-12-10)
PROC: 4A023N7 Measurement of Cardiac Sampling and Pressure, Left Heart, Percutaneous Approach (ICD-10-PCS; principal; 2019-12-11)
PROC: 027034Z Dilation of Coronary Artery, One Artery with Drug-eluting Intraluminal Device, Percutaneous Approach (ICD-10-PCS; 2019-12-11)
PROC: B2111ZZ Fluoroscopy of Multiple Coronary Arteries using Low Osmolar Contrast (ICD-10-PCS; 2019-12-11)
PROC: B2151ZZ Fluoroscopy of Left Heart using Low Osmolar Contrast (ICD-10-PCS; 2019-12-11)
PROC: 5A1D70Z Performance of Urinary Filtration, Intermittent, Less than 6 Hours Per Day (ICD-10-PCS; 2019-12-11)
PROC: 5A1D70Z Performance of Urinary Filtration, Intermittent, Less than 6 Hours Per Day (ICD-10-PCS; 2019-12-13)
DX: T82.855A Stenosis of coronary artery stent, initial encounter (principal); I21.4 Non-ST elevation (NSTEMI) myocardial infarction; N18.6 End stage renal disease; I50.21 Acute systolic (congestive) heart failure; S72.002A Fracture of unspecified part of neck of left femur, initial encounter for closed fracture; J96.01 Acute respiratory failure with hypoxia; I13.2 Hypertensive heart and chronic kidney disease with heart failure and with stage 5 chronic kidney disease, or end stage renal disease; K92.2 Gastrointestinal hemorrhage, unspecified; E78.00 Pure hypercholesterolemia, unspecified; E11.22 Type 2 diabetes mellitus with diabetic chronic kidney disease; E03.9 Hypothyroidism, unspecified; M10.9 Gout, unspecified; D64.9 Anemia, unspecified; I25.10 Atherosclerotic heart disease of native coronary artery without angina pectoris; H91.90 Unspecified hearing loss, unspecified ear; G47.33 Obstructive sleep apnea (adult) (pediatric); J20.9 Acute bronchitis, unspecified; E78.5 Hyperlipidemia, unspecified; E11.51 Type 2 diabetes mellitus with diabetic peripheral angiopathy without gangrene; Y84.8 Other medical procedures as the cause of abnormal reaction of the patient, or of later complication, without mention of misadventure at the time of the procedure; Z99.2 Dependence on renal dialysis; Z79.4 Long term (current) use of insulin; Z79.899 Other long term (current) drug therapy; Z82.49 Family history of ischemic heart disease and other diseases of the circulatory system; Z87.891 Personal history of nicotine dependence; Y92.89 Other specified places as the place of occurrence of the external cause
CPT/HCPCS: 71250; 82271; 83735; 84145; 84443; 86706; 87081; 87340; 92920; 92928; 93005; 93306; 94640; 94660; 96365; 96375; 97110; 97116; 97163; 97167; 97530; 99291; C9113; G0378; J0696; J0885; J1644; J2150; J2370; J3490; J7030; J7050; Q9967

== ENCOUNTER 2019-12-14 14:28 | Inpatient (IN) | payer MEDICARE, MEDICAID ==
[~2019-12-14] VITALS: Ht 175.3 cm; Wt 87.1 kg
[~2019-12-14 14:28] MED LIST changes: +ACET650S14 PR; +AUD NEB; +CEFX1I IM; +DOXY100C PO; +EPOE10I SQ; +LEVO25TA9 PO; +NITR0.4T52 SL; -NITR1PAT64 PO; +ONDA4VIA22 IV; +PANT40VI14 PO
[2019-12-14 15:00] VITALS: BP 158/55
[2019-12-14 16:00] VITALS: BP 158/55
[2019-12-14] MEDS ORDERED: ACETAMINOPHEN 325 MG TABLET PO PRN (17:45)
[2019-12-14] MEDS ORDERED: IPRATROPIUM BROMIDE 0.5 MG/2.5 ML NEB SOLUTION NEB PRN (18:00)
[2019-12-14] MEDS ORDERED: ALBUTEROL SULFATE 2.5 MG/0.5 ML NEB SOLUTION NEB PRN (18:00)
[2019-12-14 18:13] LABS: GLUCOMETER DEV NAME(LOC) 2WR.2; GLUCOSE,POINT OF CARE 135 MG/DL (70-110)
[2019-12-14] MEDS ORDERED: DEXTROSE 50%-WATER 25 GM/50 ML SYRINGE IVP PRN (18:15)
[2019-12-14] MEDS ORDERED: SODIUM CHLORIDE 0.9% 250 ML IV ONE (18:45)
[2019-12-14] MEDS: CefTRIAXone 1 GM/DEXTROSE 50 ML IV SCH (18:52)
[2019-12-14] MEDS: DOXYCYCLINE HYCLATE 100 MG CAPSULE PO SCH (21:09)
[2019-12-14] MEDS: ATORVASTATIN CALCIUM 40 MG TABLET PO SCH (21:09)
[2019-12-14] MEDS: DOCUSATE SODIUM 100 MG CAPSULE PO SCH (21:10)
[2019-12-14] MEDS: SENNA 187 MG TABLET PO SCH (21:10)
[2019-12-14] MEDS: INSULIN LISPRO 100 UNITS/ML SQ PRN (21:11)
[2019-12-14 21:31] LABS: GLUCOMETER DEV NAME(LOC) 2WR.2; GLUCOSE,POINT OF CARE 171 MG/DL (70-110)
[2019-12-14] MEDS: ALBUTEROL SULFATE 2.5 MG/0.5 ML NEB SOLUTION NEB SCH (22:45)
[2019-12-14] MEDS: IPRATROPIUM BROMIDE 0.5 MG/2.5 ML NEB SOLUTION NEB SCH (22:45)
[2019-12-15] VITALS: BP 129/66
[2019-12-15] MEDS: IPRATROPIUM BROMIDE 0.5 MG/2.5 ML NEB SOLUTION NEB SCH ×4 (02:41→20:00)
[2019-12-15] MEDS: ALBUTEROL SULFATE 2.5 MG/0.5 ML NEB SOLUTION NEB SCH ×4 (02:41→20:00)
[2019-12-15] MEDS: LEVOTHYROXINE SODIUM 25 MCG TABLET PO SCH (05:42)
[2019-12-15 05:52] LABS: GLUCOMETER DEV NAME(LOC) 2WR.1C; GLUCOSE,POINT OF CARE 139 MG/DL (70-110)
[2019-12-15] MEDS ORDERED: SODIUM CHLORIDE 0.9% 100 ML ONE (06:06)
[2019-12-15 06:58] VITALS: BP 146/66
[2019-12-15] MEDS: ONDANSETRON HCL 4 MG TABLET PO PRN (06:58)
[2019-12-15 07:07] LABS: BASOPHILS % (AUTO) 0.5 % (0.0-2.0); EOSINOPHILS % (AUTO) 3.1 % (1.0-6.0); LYMPHOCYTES # (AUTO) 0.9 K/uL (1.0-4.8); LYMPHOCYTES % (AUTO) 8.9 % (22.0-44.0); MEAN CORPUSCULAR HEMOGLOBIN 31.9 pg (26.0-34.0); MEAN CORPUSCULAR HGB CONC 34.1 G/dL (31.0-37.0); MEAN CORPUSCULAR VOLUME 94 fL (80-100); MONOCYTES # (AUTO) 0.8 K/uL (0.1-1.0); MONOCYTES % (AUTO) 7.9 % (2.0-9.0); NEUTROPHILS # (AUTO) 7.7 K/uL (1.8-7.7); NEUTROPHILS % (AUTO) 79.6 % (40.0-70.0); PLATELET COUNT (AUTO) 218 K/uL (150-450); RED BLOOD CELL COUNT(AUTO) 2.14 MIL/uL (4.50-5.90); RED CELL DISTRIBUTION WIDTH 18.9 % (11.5-14.5)
[2019-12-15 07:36] LABS: HEMOGLOBIN 6.8 g/dL (13.5-17.5)
[2019-12-15 07:43] LABS: BILIRUBIN,TOTAL 0.5 mg/dL (0.1-1.0); CALCIUM, TOTAL 7.8 mg/dL (8.8-10.5); CREATININE 5.62 mg/dL (0.60-1.30); POTASSIUM 4.7 mmol/L (3.5-5.1); TOTAL PROTEIN, SERUM 7.3 g/dL (6.4-8.2)
[2019-12-15] MEDS: 0.9% SODIUM CHLORIDE 10 ML SYRINGE IVP SCH ×3 (08:00→19:51)
[2019-12-15] MEDS: CLOPIDOGREL BISULFATE 75 MG TABLET PO SCH (08:00)
[2019-12-15] MEDS: VITAMIN B COMP/VIT C/FOLIC ACID CAPSULE PO SCH (08:00)
[2019-12-15] MEDS: CINACALCET HCL 30 MG TABLET PO SCH (08:00)
[2019-12-15] MEDS: DOXYCYCLINE HYCLATE 100 MG CAPSULE PO SCH ×2 (08:00→20:54)
[2019-12-15] MEDS: ASPIRIN 81 MG CHEWABLE TABLET PO SCH (08:01)
[2019-12-15] MEDS: PANTOPRAZOLE SODIUM 40 MG DR TABLET PO SCH (08:01)
[2019-12-15] MEDS: SERTRALINE HCL 50 MG TABLET PO SCH (08:01)
[2019-12-15] MEDS: OXYGEN THERAPY IH SCH ×3 (08:02→19:52)
[2019-12-15] MEDS: DOCUSATE SODIUM 100 MG CAPSULE PO SCH ×2 (08:02→20:54)
[2019-12-15] MEDS ORDERED: EPOETIN ALFA 10,000 UNITS/ML VIAL SQ SCH (09:00)
[2019-12-15] MEDS: INSULIN LISPRO 100 UNITS/ML SQ PRN (13:00)
[2019-12-15] MEDS ORDERED: SODIUM CHLORIDE 0.9% 2,000 ML ONE (14:15)
[2019-12-15 15:00] VITALS: BP 103/38
[2019-12-15 19:40] VITALS: BP 81/28
[2019-12-15] MEDS: CefTRIAXone 1 GM/DEXTROSE 50 ML IV SCH (19:51)
[2019-12-15 19:56] VITALS: BP 103/40
[2019-12-15 20:48] VITALS: BP 110/46
[2019-12-15] MEDS: SENNA 187 MG TABLET PO SCH (20:54)
[2019-12-15] MEDS: ATORVASTATIN CALCIUM 40 MG TABLET PO SCH (20:54)
[2019-12-15 21:08] LABS: GLUCOMETER DEV NAME(LOC) 2WR.2; GLUCOSE,POINT OF CARE 135 MG/DL (70-110)
[2019-12-16] MEDS: OXYGEN THERAPY IH SCH ×4 (00:26→23:30)
[2019-12-16] MEDS: 0.9% SODIUM CHLORIDE 10 ML SYRINGE IVP SCH ×4 (00:27→23:57)
[2019-12-16 00:28] VITALS: BP 117/54
[2019-12-16] MEDS: IPRATROPIUM BROMIDE 0.5 MG/2.5 ML NEB SOLUTION NEB SCH ×4 (02:00→20:54)
[2019-12-16] MEDS: ALBUTEROL SULFATE 2.5 MG/0.5 ML NEB SOLUTION NEB SCH ×4 (02:00→20:54)
[2019-12-16 05:28] LABS: GLUCOMETER DEV NAME(LOC) 2WR.1C; GLUCOSE,POINT OF CARE 230 MG/DL (70-110)
[2019-12-16] MEDS: LEVOTHYROXINE SODIUM 25 MCG TABLET PO SCH (05:59)
[2019-12-16 06:43] LABS: GLUCOMETER DEV NAME(LOC) 2WR.2; GLUCOSE,POINT OF CARE 123 MG/DL (70-110)
[2019-12-16 07:38] LABS: BASOPHILS % (AUTO) 0.5 % (0.0-2.0); EOSINOPHILS % (AUTO) 2.8 % (1.0-6.0); HEMOGLOBIN 8.2 g/dL (13.5-17.5); LYMPHOCYTES # (AUTO) 1.1 K/uL (1.0-4.8); MEAN CORPUSCULAR HEMOGLOBIN 33.1 pg (26.0-34.0); MEAN CORPUSCULAR HGB CONC 35.8 G/dL (31.0-37.0); MEAN CORPUSCULAR VOLUME 93 fL (80-100); MONOCYTES # (AUTO) 0.9 K/uL (0.1-1.0); MONOCYTES % (AUTO) 9.6 % (2.0-9.0); NEUTROPHILS # (AUTO) 7.5 K/uL (1.8-7.7); NEUTROPHILS % (AUTO) 76.1 % (40.0-70.0); PLATELET COUNT (AUTO) 232 K/uL (150-450); RED BLOOD CELL COUNT(AUTO) 2.48 MIL/uL (4.50-5.90); RED CELL DISTRIBUTION WIDTH 18.5 % (11.5-14.5)
[2019-12-16 07:55] LABS: CALCIUM, TOTAL 8.2 mg/dL (8.8-10.5); CREATININE 4.21 mg/dL (0.60-1.30); PHOSPHORUS 3.4 mg/dL (2.5-4.9); POTASSIUM 4.6 mmol/L (3.5-5.1)
[2019-12-16 08:00] VITALS: BP 88/32
[2019-12-16] MEDS: ONDANSETRON HCL 4 MG TABLET PO PRN (08:41)
[2019-12-16] MEDS: ASPIRIN 81 MG CHEWABLE TABLET PO SCH (08:42)
[2019-12-16] MEDS: CINACALCET HCL 30 MG TABLET PO SCH (08:42)
[2019-12-16] MEDS: DOXYCYCLINE HYCLATE 100 MG CAPSULE PO SCH ×2 (08:42→21:06)
[2019-12-16] MEDS: PANTOPRAZOLE SODIUM 40 MG DR TABLET PO SCH (08:42)
[2019-12-16] MEDS: CLOPIDOGREL BISULFATE 75 MG TABLET PO SCH (08:42)
[2019-12-16] MEDS: SERTRALINE HCL 50 MG TABLET PO SCH (08:42)
[2019-12-16] MEDS: DOCUSATE SODIUM 250 MG CAPSULE PO SCH ×2 (08:42→21:05)
[2019-12-16] MEDS: VITAMIN B COMP/VIT C/FOLIC ACID CAPSULE PO SCH (08:42)
[2019-12-16 09:03] VITALS: BP 100/43
[2019-12-16] MEDS ORDERED: MIDODRINE HCL 2.5 MG TABLET PO PRN (10:45)
[2019-12-16 12:53] LABS: GLUCOMETER DEV NAME(LOC) 2WR.2; GLUCOSE,POINT OF CARE 149 MG/DL (70-110)
[2019-12-16] MEDS: LACTULOSE 20 GM/30 ML SOLUTION UDCUP PO SCH (13:07)
[2019-12-16] MEDS: INSULIN LISPRO 100 UNITS/ML SQ PRN (13:09)
[2019-12-16 15:20] VITALS: BP 100/58
[2019-12-16] MEDS: CefTRIAXone 1 GM/DEXTROSE 50 ML IV SCH (18:06)
[2019-12-16] MEDS: ATORVASTATIN CALCIUM 40 MG TABLET PO SCH (21:05)
[2019-12-16] MEDS: SENNA 187 MG TABLET PO SCH (21:06)
[2019-12-17 00:21] VITALS: BP 95/44
[2019-12-17] MEDS: IPRATROPIUM BROMIDE 0.5 MG/2.5 ML NEB SOLUTION NEB SCH ×4 (02:00→21:16)
[2019-12-17] MEDS: ALBUTEROL SULFATE 2.5 MG/0.5 ML NEB SOLUTION NEB SCH ×4 (02:00→21:16)
[2019-12-17 04:02] LABS: GLUCOMETER DEV NAME(LOC) 2WR.1C; GLUCOSE,POINT OF CARE 149 MG/DL (70-110)
[2019-12-17 04:02] LABS: GLUCOMETER DEV NAME(LOC) 2WR.1C; GLUCOSE,POINT OF CARE 149 MG/DL (70-110)
[2019-12-17] MEDS: LEVOTHYROXINE SODIUM 25 MCG TABLET PO SCH (05:39)
[2019-12-17 06:04] LABS: GLUCOMETER DEV NAME(LOC) 2WR.1C; GLUCOSE,POINT OF CARE 122 MG/DL (70-110)
[2019-12-17] MEDS: OXYGEN THERAPY IH SCH ×3 (07:30→23:30)
[2019-12-17 08:01] VITALS: BP 109/42
[2019-12-17] MEDS: DOXYCYCLINE HYCLATE 100 MG CAPSULE PO SCH ×2 (08:11→20:52)
[2019-12-17] MEDS: CINACALCET HCL 30 MG TABLET PO SCH (08:11)
[2019-12-17] MEDS: CLOPIDOGREL BISULFATE 75 MG TABLET PO SCH (08:12)
[2019-12-17] MEDS: VITAMIN B COMP/VIT C/FOLIC ACID CAPSULE PO SCH (08:12)
[2019-12-17] MEDS: DOCUSATE SODIUM 250 MG CAPSULE PO SCH ×2 (08:12→20:52)
[2019-12-17] MEDS: PANTOPRAZOLE SODIUM 40 MG DR TABLET PO SCH (08:13)
[2019-12-17] MEDS: LACTULOSE 20 GM/30 ML SOLUTION UDCUP PO SCH (08:14)
[2019-12-17] MEDS: ASPIRIN 81 MG CHEWABLE TABLET PO SCH (08:15)
[2019-12-17] MEDS: 0.9% SODIUM CHLORIDE 10 ML SYRINGE IVP SCH ×3 (08:15→23:55)
[2019-12-17] MEDS: SERTRALINE HCL 50 MG TABLET PO SCH (08:15)
[2019-12-17 16:00] VITALS: BP 146/50
[2019-12-17 16:26] LABS: GLUCOMETER DEV NAME(LOC) 2WR.1C; GLUCOSE,POINT OF CARE 128 MG/DL (70-110)
[2019-12-17] MEDS ORDERED: PEG 3350/NA SULF,BICARB,CL/KCL 4000 ML SOLUTION PO ONE (17:15)
[2019-12-17 18:28] LABS: GLUCOMETER DEV NAME(LOC) 2WR.1C; GLUCOSE,POINT OF CARE 153 MG/DL (70-110)
[2019-12-17] MEDS: CefTRIAXone 1 GM/DEXTROSE 50 ML IV SCH (18:31)
[2019-12-17] MEDS: ATORVASTATIN CALCIUM 40 MG TABLET PO SCH (20:52)
[2019-12-17] MEDS: SENNA 187 MG TABLET PO SCH (20:53)
[2019-12-17] MEDS ORDERED: WATER FOR IRRIGATION,STERILE 1000 ML SOLUTION BOTTLE ONE (21:36)
[2019-12-18] VITALS: BP 113/39
[2019-12-18] MEDS: IPRATROPIUM BROMIDE 0.5 MG/2.5 ML NEB SOLUTION NEB SCH ×4 (02:00→20:16)
[2019-12-18] MEDS: ALBUTEROL SULFATE 2.5 MG/0.5 ML NEB SOLUTION NEB SCH ×4 (02:00→20:16)
[2019-12-18 05:55] LABS: GLUCOMETER DEV NAME(LOC) 2WR.1C; GLUCOSE,POINT OF CARE 107 MG/DL (70-110)
[2019-12-18 06:00] VITALS: BP 136/60
[2019-12-18] MEDS: LEVOTHYROXINE SODIUM 25 MCG TABLET PO SCH (06:14)
[2019-12-18] MEDS: CINACALCET HCL 30 MG TABLET PO SCH (07:30)
[2019-12-18] MEDS ORDERED: SODIUM CHLORIDE 0.9% 1,000 ML IV ONE (07:45)
[2019-12-18] MEDS: LACTULOSE 20 GM/30 ML SOLUTION UDCUP PO SCH (09:00)
[2019-12-18] MEDS: DOCUSATE SODIUM 250 MG CAPSULE PO SCH ×2 (09:00→20:36)
[2019-12-18 09:45] VITALS: BP 128/72
[2019-12-18] MEDS: ASPIRIN 81 MG CHEWABLE TABLET PO SCH (09:52)
[2019-12-18] MEDS: CLOPIDOGREL BISULFATE 75 MG TABLET PO SCH (09:52)
[2019-12-18] MEDS: VITAMIN B COMP/VIT C/FOLIC ACID CAPSULE PO SCH (09:52)
[2019-12-18] MEDS: DOXYCYCLINE HYCLATE 100 MG CAPSULE PO SCH (09:52)
[2019-12-18] MEDS: SERTRALINE HCL 50 MG TABLET PO SCH (09:53)
[2019-12-18] MEDS: PANTOPRAZOLE SODIUM 40 MG DR TABLET PO SCH (09:53)
[2019-12-18] MEDS: 0.9% SODIUM CHLORIDE 10 ML SYRINGE IVP SCH ×3 (10:15→23:34)
[2019-12-18] MEDS: EPOETIN ALFA 10,000 UNITS/ML 2 ML VIAL SQ SCH (10:16)
[2019-12-18] MEDS: OXYGEN THERAPY IH SCH ×3 (10:20→23:30)
[2019-12-18] MEDS: INSULIN LISPRO 100 UNITS/ML SQ PRN ×2 (12:32→20:45)
[2019-12-18 13:15] LABS: GLUCOMETER DEV NAME(LOC) 2WR.2; GLUCOSE,POINT OF CARE 146 MG/DL (70-110)
[2019-12-18] MEDS ORDERED: SODIUM CHLORIDE 0.9% 250 ML IV ONE (18:24)
[2019-12-18 18:49] VITALS: BP 125/61
[2019-12-18] MEDS: ATORVASTATIN CALCIUM 40 MG TABLET PO SCH (20:29)
[2019-12-18] MEDS: SENNA 187 MG TABLET PO SCH (20:36)
[2019-12-18 21:05] LABS: GLUCOMETER DEV NAME(LOC) 2WR.1C; GLUCOSE,POINT OF CARE 153 MG/DL (70-110)
[2019-12-18 21:05] LABS: GLUCOMETER DEV NAME(LOC) 2WR.1C; GLUCOSE,POINT OF CARE 93 MG/DL (70-110)
[2019-12-19] VITALS: BP 128/46
[2019-12-19] MEDS: ALBUTEROL SULFATE 2.5 MG/0.5 ML NEB SOLUTION NEB SCH ×4 (02:00→19:36)
[2019-12-19] MEDS: IPRATROPIUM BROMIDE 0.5 MG/2.5 ML NEB SOLUTION NEB SCH ×4 (02:00→19:36)
[2019-12-19] MEDS: LEVOTHYROXINE SODIUM 25 MCG TABLET PO SCH (05:41)
[2019-12-19] MEDS ORDERED: PROPOFOL 1% 20 ML VIAL IVP ONE (06:08)
[2019-12-19] MEDS ORDERED: LIDOCAINE 1% 10 ML VIAL IM ONE (06:08)
[2019-12-19 06:24] LABS: GLUCOMETER DEV NAME(LOC) 2WR.2; GLUCOSE,POINT OF CARE 107 MG/DL (70-110)
[2019-12-19] MEDS: OXYGEN THERAPY IH SCH ×3 (07:30→23:30)
[2019-12-19] MEDS: 0.9% SODIUM CHLORIDE 10 ML SYRINGE IVP SCH ×2 (08:00→16:00)
[2019-12-19] MEDS: CINACALCET HCL 30 MG TABLET PO SCH (08:09)
[2019-12-19] MEDS: SERTRALINE HCL 50 MG TABLET PO SCH (08:09)
[2019-12-19] MEDS: PANTOPRAZOLE SODIUM 40 MG DR TABLET PO SCH (08:09)
[2019-12-19] MEDS: VITAMIN B COMP/VIT C/FOLIC ACID CAPSULE PO SCH (08:09)
[2019-12-19] MEDS: LACTULOSE 20 GM/30 ML SOLUTION UDCUP PO SCH (08:10)
[2019-12-19] MEDS: CLOPIDOGREL BISULFATE 75 MG TABLET PO SCH (08:10)
[2019-12-19] MEDS: ASPIRIN 81 MG CHEWABLE TABLET PO SCH (08:10)
[2019-12-19] MEDS: DOCUSATE SODIUM 250 MG CAPSULE PO SCH ×2 (08:11→20:37)
[2019-12-19 08:25] VITALS: BP 132/61
[2019-12-19 12:55] LABS: GLUCOMETER DEV NAME(LOC) 2WR.2; GLUCOSE,POINT OF CARE 139 MG/DL (70-110)
[2019-12-19 16:00] VITALS: BP 113/45
[2019-12-19 18:26] LABS: GLUCOMETER DEV NAME(LOC) 2WR.1C; GLUCOSE,POINT OF CARE 136 MG/DL (70-110)
[2019-12-19] MEDS: SENNA 187 MG TABLET PO SCH (20:37)
[2019-12-19] MEDS: ATORVASTATIN CALCIUM 40 MG TABLET PO SCH (20:37)
[2019-12-19] MEDS: INSULIN LISPRO 100 UNITS/ML SQ PRN (20:38)
[2019-12-19 22:35] LABS: GLUCOMETER DEV NAME(LOC) 2WR.2; GLUCOSE,POINT OF CARE 149 MG/DL (70-110)
[2019-12-20] MEDS: LEVOTHYROXINE SODIUM 25 MCG TABLET PO SCH (05:27)
[2019-12-20 05:33] VITALS: BP 111/59
[2019-12-20 06:10] LABS: GLUCOMETER DEV NAME(LOC) 2WR.1C; GLUCOSE,POINT OF CARE 104 MG/DL (70-110)
[2019-12-20 07:07] LABS: EOSINOPHILS % (AUTO) 4.3 % (1.0-6.0); HEMATOCRIT 21.1 % (41-53); HEMOGLOBIN 7.2 g/dL (13.5-17.5); LYMPHOCYTES # (AUTO) 1.5 K/uL (1.0-4.8); LYMPHOCYTES % (AUTO) 20.7 % (22.0-44.0); MEAN CORPUSCULAR HEMOGLOBIN 31.8 pg (26.0-34.0); MEAN CORPUSCULAR VOLUME 94 fL (80-100); MONOCYTES # (AUTO) 0.5 K/uL (0.1-1.0); MONOCYTES % (AUTO) 7.4 % (2.0-9.0); NEUTROPHILS % (AUTO) 66.6 % (40.0-70.0); PLATELET COUNT (AUTO) 237 K/uL (150-450); RED BLOOD CELL COUNT(AUTO) 2.25 MIL/uL (4.50-5.90); RED CELL DISTRIBUTION WIDTH 18.9 % (11.5-14.5)
[2019-12-20 07:10] LABS: CALCIUM, TOTAL 7.8 mg/dL (8.8-10.5); CREATININE 6.4 mg/dL (0.60-1.30); POTASSIUM 4.3 mmol/L (3.5-5.1)
[2019-12-20] MEDS: OXYGEN THERAPY IH SCH ×3 (07:30→23:30)
[2019-12-20] MEDS: DOCUSATE SODIUM 250 MG CAPSULE PO SCH ×2 (07:40→21:35)
[2019-12-20] MEDS: PANTOPRAZOLE SODIUM 40 MG DR TABLET PO SCH (07:40)
[2019-12-20] MEDS: SERTRALINE HCL 50 MG TABLET PO SCH (07:40)
[2019-12-20] MEDS: CINACALCET HCL 30 MG TABLET PO SCH (07:40)
[2019-12-20] MEDS: VITAMIN B COMP/VIT C/FOLIC ACID CAPSULE PO SCH (07:40)
[2019-12-20] MEDS: ASPIRIN 81 MG CHEWABLE TABLET PO SCH (07:40)
[2019-12-20] MEDS: CLOPIDOGREL BISULFATE 75 MG TABLET PO SCH (07:40)
[2019-12-20] MEDS: EPOETIN ALFA 10,000 UNITS/ML 2 ML VIAL SQ SCH (07:43)
[2019-12-20 08:02] VITALS: BP 120/50
[2019-12-20] MEDS: IPRATROPIUM BROMIDE 0.5 MG/2.5 ML NEB SOLUTION NEB SCH ×3 (09:04→20:34)
[2019-12-20] MEDS: ALBUTEROL SULFATE 2.5 MG/0.5 ML NEB SOLUTION NEB SCH ×3 (09:04→20:34)
[2019-12-20] MEDS: INSULIN LISPRO 100 UNITS/ML SQ PRN ×2 (12:55→21:40)
[2019-12-20] MEDS ORDERED: SODIUM CHLORIDE 0.9% 2,000 ML ONE (14:13)
[2019-12-20 14:47] LABS: GLUCOMETER DEV NAME(LOC) 2WR.1C; GLUCOSE,POINT OF CARE 145 MG/DL (70-110)
[2019-12-20 16:49] LABS: BASOPHILS % (AUTO) 1.2 % (0.0-2.0); EOSINOPHILS % (AUTO) 4.7 % (1.0-6.0); HEMATOCRIT 22.1 % (41-53); HEMOGLOBIN 7.5 g/dL (13.5-17.5); LYMPHOCYTES # (AUTO) 1.5 K/uL (1.0-4.8); LYMPHOCYTES % (AUTO) 16.9 % (22.0-44.0); MEAN CORPUSCULAR HEMOGLOBIN 31.6 pg (26.0-34.0); MEAN CORPUSCULAR HGB CONC 33.8 G/dL (31.0-37.0); MEAN CORPUSCULAR VOLUME 94 fL (80-100); MONOCYTES # (AUTO) 0.5 K/uL (0.1-1.0); MONOCYTES % (AUTO) 5.8 % (2.0-9.0); NEUTROPHILS # (AUTO) 6.2 K/uL (1.8-7.7); NEUTROPHILS % (AUTO) 71.4 % (40.0-70.0); PLATELET COUNT (AUTO) 261 K/uL (150-450); RED BLOOD CELL COUNT(AUTO) 2.36 MIL/uL (4.50-5.90); RED CELL DISTRIBUTION WIDTH 19.1 % (11.5-14.5)
[2019-12-20 18:50] VITALS: BP 136/60
[2019-12-20 19:41] LABS: GLUCOMETER DEV NAME(LOC) 2WR.2; GLUCOSE,POINT OF CARE 91 MG/DL (70-110)
[2019-12-20] MEDS: SENNA 187 MG TABLET PO SCH (21:35)
[2019-12-20] MEDS: ATORVASTATIN CALCIUM 40 MG TABLET PO SCH (21:35)
[2019-12-20 22:13] LABS: GLUCOMETER DEV NAME(LOC) 2WR.1C; GLUCOSE,POINT OF CARE 158 MG/DL (70-110)
[2019-12-21] VITALS (13 sets, daily range): BP systolic 96–159; BP diastolic 38–64
[2019-12-21] MEDS: ALBUTEROL SULFATE 2.5 MG/0.5 ML NEB SOLUTION NEB SCH ×4 (02:00→21:50)
[2019-12-21] MEDS: IPRATROPIUM BROMIDE 0.5 MG/2.5 ML NEB SOLUTION NEB SCH ×4 (02:00→21:50)
[2019-12-21] MEDS: LEVOTHYROXINE SODIUM 25 MCG TABLET PO SCH (06:05)
[2019-12-21 06:28] LABS: GLUCOMETER DEV NAME(LOC) 2WR.2; GLUCOSE,POINT OF CARE 97 MG/DL (70-110)
[2019-12-21] MEDS: OXYGEN THERAPY IH SCH ×3 (07:30→23:30)
[2019-12-21] MEDS: ONDANSETRON HCL 4 MG TABLET PO PRN (07:44)
[2019-12-21] MEDS: CINACALCET HCL 30 MG TABLET PO SCH (07:47)
[2019-12-21] MEDS: CLOPIDOGREL BISULFATE 75 MG TABLET PO SCH (08:34)
[2019-12-21] MEDS: PANTOPRAZOLE SODIUM 40 MG DR TABLET PO SCH (08:34)
[2019-12-21] MEDS: SERTRALINE HCL 50 MG TABLET PO SCH (08:34)
[2019-12-21] MEDS: DOCUSATE SODIUM 250 MG CAPSULE PO SCH ×2 (08:34→20:07)
[2019-12-21] MEDS: ASPIRIN 81 MG CHEWABLE TABLET PO SCH (08:34)
[2019-12-21] MEDS: VITAMIN B COMP/VIT C/FOLIC ACID CAPSULE PO SCH (08:34)
[2019-12-21 12:38] LABS: GLUCOMETER DEV NAME(LOC) 2WR.2; GLUCOSE,POINT OF CARE 129 MG/DL (70-110)
[2019-12-21] MEDS ORDERED: SODIUM CHLORIDE 0.9% 1,000 ML ONE (13:22)
[2019-12-21] MEDS ORDERED: SODIUM CHLORIDE 0.9% 250 ML IV ONE (15:12)
[2019-12-21 18:17] LABS: GLUCOMETER DEV NAME(LOC) 2WR.2; GLUCOSE,POINT OF CARE 142 MG/DL (70-110)
[2019-12-21] MEDS: ATORVASTATIN CALCIUM 40 MG TABLET PO SCH (20:07)
[2019-12-21] MEDS: SENNA 187 MG TABLET PO SCH (20:07)
[2019-12-21 21:39] LABS: GLUCOMETER DEV NAME(LOC) 2WR.1C; GLUCOSE,POINT OF CARE 138 MG/DL (70-110)
[2019-12-22] VITALS (9 sets, daily range): BP systolic 95–165; BP diastolic 46–79
[2019-12-22] MEDS: IPRATROPIUM BROMIDE 0.5 MG/2.5 ML NEB SOLUTION NEB SCH ×4 (01:37→20:09)
[2019-12-22] MEDS: ALBUTEROL SULFATE 2.5 MG/0.5 ML NEB SOLUTION NEB SCH ×4 (01:37→20:09)
[2019-12-22] MEDS: LEVOTHYROXINE SODIUM 25 MCG TABLET PO SCH (05:43)
[2019-12-22 06:09] LABS: GLUCOMETER DEV NAME(LOC) 2WR.1C; GLUCOSE,POINT OF CARE 119 MG/DL (70-110)
[2019-12-22] MEDS: OXYGEN THERAPY IH SCH ×3 (07:30→23:30)
[2019-12-22 07:44] LABS: BASOPHILS % (AUTO) 1.1 % (0.0-2.0); EOSINOPHILS % (AUTO) 4.4 % (1.0-6.0); HEMATOCRIT 23.3 % (41-53); LYMPHOCYTES # (AUTO) 1.5 K/uL (1.0-4.8); LYMPHOCYTES % (AUTO) 17.5 % (22.0-44.0); MEAN CORPUSCULAR HEMOGLOBIN 32.8 pg (26.0-34.0); MEAN CORPUSCULAR HGB CONC 34.3 G/dL (31.0-37.0); MEAN CORPUSCULAR VOLUME 96 fL (80-100); MONOCYTES # (AUTO) 0.6 K/uL (0.1-1.0); MONOCYTES % (AUTO) 7.1 % (2.0-9.0); NEUTROPHILS % (AUTO) 69.9 % (40.0-70.0); PLATELET COUNT (AUTO) 202 K/uL (150-450); RED BLOOD CELL COUNT(AUTO) 2.44 MIL/uL (4.50-5.90); RED CELL DISTRIBUTION WIDTH 17.9 % (11.5-14.5)
[2019-12-22] MEDS: VITAMIN B COMP/VIT C/FOLIC ACID CAPSULE PO SCH (08:03)
[2019-12-22] MEDS: ASPIRIN 81 MG CHEWABLE TABLET PO SCH (08:03)
[2019-12-22] MEDS: EPOETIN ALFA 10,000 UNITS/ML 2 ML VIAL SQ SCH (08:03)
[2019-12-22] MEDS: PANTOPRAZOLE SODIUM 40 MG DR TABLET PO SCH (08:03)
[2019-12-22] MEDS: DOCUSATE SODIUM 250 MG CAPSULE PO SCH ×2 (08:03→22:07)
[2019-12-22] MEDS: CINACALCET HCL 30 MG TABLET PO SCH (08:03)
[2019-12-22] MEDS: SERTRALINE HCL 50 MG TABLET PO SCH (08:03)
[2019-12-22] MEDS: CLOPIDOGREL BISULFATE 75 MG TABLET PO SCH (08:03)
[2019-12-22 12:45] LABS: GLUCOMETER DEV NAME(LOC) 2WR.2; GLUCOSE,POINT OF CARE 108 MG/DL (70-110)
[2019-12-22] MEDS ORDERED: SODIUM CHLORIDE 0.9% 1,000 ML ONE (15:17)
[2019-12-22] MEDS ORDERED: SODIUM CHLORIDE 0.9% 500 ML IV ONE (16:28)
[2019-12-22 17:19] LABS: GLUCOMETER DEV NAME(LOC) 2WR.1C; GLUCOSE,POINT OF CARE 107 MG/DL (70-110)
[2019-12-22] MEDS: SENNA 187 MG TABLET PO SCH (22:07)
[2019-12-22] MEDS: ATORVASTATIN CALCIUM 40 MG TABLET PO SCH (22:07)
[2019-12-22 23:18] LABS: GLUCOMETER DEV NAME(LOC) 2WR.2; GLUCOSE,POINT OF CARE 109 MG/DL (70-110)
[2019-12-22] MEDS ORDERED: IPRNEB IH (23:50)
[2019-12-22] MEDS ORDERED: B CO1CAP6 PO (23:50)
[2019-12-22] MEDS ORDERED: INSU100V SQ (23:50)
[2019-12-22] MEDS ORDERED: DOCU-342 PO (23:50)
[2019-12-23] MEDS: ALBUTEROL SULFATE 2.5 MG/0.5 ML NEB SOLUTION NEB SCH ×2 (02:00→08:51)
[2019-12-23] MEDS: IPRATROPIUM BROMIDE 0.5 MG/2.5 ML NEB SOLUTION NEB SCH ×2 (02:00→08:51)
[2019-12-23 05:45] VITALS: BP 114/45
[2019-12-23] MEDS: LEVOTHYROXINE SODIUM 25 MCG TABLET PO SCH (06:18)
[2019-12-23 06:38] LABS: GLUCOMETER DEV NAME(LOC) 2WR.2; GLUCOSE,POINT OF CARE 107 MG/DL (70-110)
[2019-12-23] MEDS: OXYGEN THERAPY IH SCH (07:30)
[2019-12-23] MEDS: CINACALCET HCL 30 MG TABLET PO SCH (08:04)
[2019-12-23] MEDS: SERTRALINE HCL 50 MG TABLET PO SCH (08:05)
[2019-12-23] MEDS: VITAMIN B COMP/VIT C/FOLIC ACID CAPSULE PO SCH (08:05)
[2019-12-23] MEDS: DOCUSATE SODIUM 250 MG CAPSULE PO SCH (08:05)
[2019-12-23] MEDS: PANTOPRAZOLE SODIUM 40 MG DR TABLET PO SCH (08:05)
[2019-12-23] MEDS: CLOPIDOGREL BISULFATE 75 MG TABLET PO SCH (08:05)
[2019-12-23] MEDS: ASPIRIN 81 MG CHEWABLE TABLET PO SCH (08:05)
[2019-12-23 08:10] VITALS: BP 115/51
[2019-12-23] MEDS: INSULIN LISPRO 100 UNITS/ML SQ PRN (13:00)
[2019-12-23 13:12] LABS: GLUCOMETER DEV NAME(LOC) 2WR.2; GLUCOSE,POINT OF CARE 163 MG/DL (70-110)
== END 2019-12-23 13:20 | disposition home health service (06) | DRG 947 ==
LOC: 2WR 14:28
PROVIDERS: ADMIT Physical Medicine & Rehabilitation; ATTEND Physical Medicine & Rehabilitation
PROC: 5A1D70Z Performance of Urinary Filtration, Intermittent, Less than 6 Hours Per Day (ICD-10-PCS; 2019-12-15)
PROC: 30233N1 Transfusion of Nonautologous Red Blood Cells into Peripheral Vein, Percutaneous Approach (ICD-10-PCS; 2019-12-15)
PROC: 0DJD8ZZ Inspection of Lower Intestinal Tract, Via Natural or Artificial Opening Endoscopic (ICD-10-PCS; 2019-12-18)
PROC: 5A1D70Z Performance of Urinary Filtration, Intermittent, Less than 6 Hours Per Day (ICD-10-PCS; 2019-12-18)
PROC: 0DB68ZX Excision of Stomach, Via Natural or Artificial Opening Endoscopic, Diagnostic (ICD-10-PCS; principal; 2019-12-18 08:00)
PROC: 5A1D70Z Performance of Urinary Filtration, Intermittent, Less than 6 Hours Per Day (ICD-10-PCS; 2019-12-20)
PROC: 5A1D70Z Performance of Urinary Filtration, Intermittent, Less than 6 Hours Per Day (ICD-10-PCS; 2019-12-22)
DX: R53.81 Other malaise (principal); I21.4 Non-ST elevation (NSTEMI) myocardial infarction; N18.6 End stage renal disease; J18.0 Bronchopneumonia, unspecified organism; I13.2 Hypertensive heart and chronic kidney disease with heart failure and with stage 5 chronic kidney disease, or end stage renal disease; K92.2 Gastrointestinal hemorrhage, unspecified; J44.0 Chronic obstructive pulmonary disease with (acute) lower respiratory infection; J44.9 Chronic obstructive pulmonary disease, unspecified; D63.8 Anemia in other chronic diseases classified elsewhere; E03.9 Hypothyroidism, unspecified; E11.22 Type 2 diabetes mellitus with diabetic chronic kidney disease; E11.51 Type 2 diabetes mellitus with diabetic peripheral angiopathy without gangrene; E78.00 Pure hypercholesterolemia, unspecified; E78.5 Hyperlipidemia, unspecified; I25.10 Atherosclerotic heart disease of native coronary artery without angina pectoris; I50.9 Heart failure, unspecified; J20.9 Acute bronchitis, unspecified; K44.9 Diaphragmatic hernia without obstruction or gangrene; K59.00 Constipation, unspecified; K63.5 Polyp of colon; M10.9 Gout, unspecified; K64.8 Other hemorrhoids; Z79.899 Other long term (current) drug therapy; Z99.2 Dependence on renal dialysis; Z90.49 Acquired absence of other specified parts of digestive tract
CPT/HCPCS: 82271; 83036; 84100; 86850; 86900; 86901; 86920; 87081; 87340; 88305; 88312; 88313; 90935; 92507; 92521; 94640; 97110; 97116; 97163; 97166; 97530; 97535; 99366; J0696; J0885; J2704; J3490; J7030; J7040; J7050; P9016; Q0162